=== PATIENT | male | born 1985 | race African-American/Black ===

== ENCOUNTER 2017-08-17 15:17 | Emergency (ER) | payer MEDICAID ==
[~2017-08-17] VITALS: Ht 170.2 cm; Wt 65.8 kg
[2017-08-17 15:17] VITALS: BP_SYST 117
[2017-08-17 15:54] VITALS: BP_SYST 117
== END 2017-08-17 15:54 ==
LOC: SED 15:17
DX: Z02.89 Encounter for other administrative examinations (principal)
CPT/HCPCS: 99283